=== PATIENT | female | born 1995 | race African-American/Black ===

== ENCOUNTER 2019-02-08 14:54 | Emergency (ER) | payer MEDICAID ==
[~2019-02-08] VITALS: Ht 175.3 cm; Wt 60.0 kg
[2019-02-08] MEDS ORDERED: ACETAMINOPHEN WITH CODEINE 300/30MG TABLET PO ONE (15:30)
[2019-02-08 17:30] VITALS: BP 114/62
== END 2019-02-08 17:55 | disposition home or self-care (01) ==
LOC: ER 15:14
DX: S70.01XA Contusion of right hip, initial encounter (principal); S80.01XA Contusion of right knee, initial encounter; S90.01XA Contusion of right ankle, initial encounter; V29.09XA Motorcycle driver injured in collision with other motor vehicles in nontraffic accident, initial encounter; Y93.55 Activity, bike riding; Y92.89 Other specified places as the place of occurrence of the external cause; Y99.8 Other external cause status
CPT/HCPCS: 73502; 73560; 73610; 99283